=== PATIENT | male | born 1995 | race Two or more races ===

== ENCOUNTER 2017-05-13 07:21 | Emergency (ER) | payer SELFPAY ==
[2017-05-13] MEDS ORDERED: METHYLPREDNISOLONE INJ 125 MG/2 ML SDV IM ONE (08:43)
[2017-05-13] MEDS ORDERED: HYDROXYZINE HCL 10 MG TABLET PO ONE (08:43)
[2017-05-13 08:44] VITALS: BP 140/79
--- NOTE | 2017-05-13 08:49 | ER Document Report ---
ED Skin Rash/Insect Bite/Abscs - General Chief Complaint: Rash Stated Complaint: POSSIBLE RASH Time Seen by Provider: 05/13/17 07:50 Mode of Arrival: Ambulatory Information source: Patient Notes: Patient is a 22-year-old male who presents to the ER today for high 3 days on his hands, arms, legs that seems to be worsening. He also admits to some general fatigue and chills. He denies any fever that he has no nose, cough, dysuria, sinus pressure, new soaps, new clothes, new foods or anything new that he knows of. He denies any other sick symptoms. He denies coming in contact with anything outside that he knows of. TRAVEL OUTSIDE OF THE [place] IN LAST 30 DAYS: No - Related Data Allergies/Adverse Reactions: No Known Allergies Allergy (Verified 05/13/17 07:23) Past Medical History - General Information source: Patient - Social History Smoking Status: Unknown if Ever Smoked Family History: Reviewed & Not Pertinent Patient has suicidal ideation: No Patient has homicidal ideation: No Renal/ Medical History: Denies: Hx Peritoneal Dialysis Surgical Hx: Negative - Immunizations Hx Diphtheria, Pertussis, Tetanus Vaccination: Yes Review of Systems - Review of Systems Constitutional: No symptoms reported EENT: No symptoms reported Cardiovascular: No symptoms reported Respiratory: No symptoms reported Gastrointestinal: No symptoms reported Genitourinary: No symptoms reported Male Genitourinary: No symptoms reported Musculoskeletal: No symptoms reported Skin: See HPI Hematologic/Lymphatic: No symptoms reported Neurological/Psychological: No symptoms reported Physical Exam - Vital signs Vitals: Temp Pulse Resp BP Pulse Ox 99.1 F 116 H 14 155/93 H 98 05/13/17 07:24 05/13/17 07:24 05/13/17 07:24 05/13/17 07:24 05/13/17 07:24 - Notes Notes: PHYSICAL EXAMINATION: GENERAL: Well-appearing and in no acute distress. HEAD: Atraumatic, normocephalic. EYES: Pupils equal round and reactive to light, extraocular movements intact, sclera anicteric, conjunctiva are normal. ENT: ear canals without erythema or foreign body, TMs pearly garcia with good bony landmarks, nares patent, oropharynx clear without exudates. Moist mucous membranes. NECK: Normal range of motion, supple without lymphadenopathy LUNGS: CTAB and equal. No wheezes rales or rhonchi. HEART: Regular rate and rhythm without murmurs EXTREMITIES: Normal range of motion, no pitting edema. No cyanosis. NEUROLOGICAL: Cranial nerves grossly intact. Normal sensory/motor exams. PSYCH: Normal mood, normal affect. SKIN: Warm, Dry, normal turgor, urticaria noted over her bilateral arms, hands, legs Course - Vital Signs Vital signs: Temp Pulse Resp BP Pulse Ox 99.1 F 116 H 14 155/93 H 98 05/13/17 07:24 05/13/17 07:24 05/13/17 07:24 05/13/17 07:24 05/13/17 07:24 Discharge - Discharge Clinical Impression: Urticaria Condition: Stable Disposition: HOME, SELF-CARE Additional Instructions: Return immediately for any new or worsening symptoms. Follow up with primary care provider, call tomorrow to make followup appointment. Prescriptions: Hydroxyzine Pamoate 1 - 2 mg PO Q8 PRN #30 capsule PRN Reason: Prednisone [Deltasone 20 mg Tablet] 3 tab PO DAILY 5 Days Forms: Return to Work
== END 2017-05-13 08:59 | disposition home or self-care (01) ==
LOC: ER 07:21
DX: L50.9 Urticaria, unspecified (principal); R21 Rash and other nonspecific skin eruption; R53.83 Other fatigue
CPT/HCPCS: 99282; 96372; J2930